=== PATIENT | female | born 1990 | race Caucasian/White ===

== ENCOUNTER 2017-08-09 06:10 | Inpatient (IN) | payer OTHER ==
[2017-08-09 06:39] VITALS: BMI 28.3
[2017-08-09] MEDS ORDERED: DEXTROSE 5%-LACTATED RINGERS 1,000 ML IV SCH (07:15)
[2017-08-09] MEDS ORDERED: TUBERCULIN PPD 5 TU/0.1ML SYRINGE (IN PATIENT USE ONLY) ID ONE (07:15)
[2017-08-09] MEDS ORDERED: IBUPROFEN 600 MG TABLET (FP) PO PRN (08:48)
[2017-08-09] MEDS ORDERED: ONDANSETRON 4 MG/2 ML VIAL IVPUSH PRN (08:48)
[2017-08-09] MEDS ORDERED: IBUPROFEN 800 MG/8 ML IJ IVPB ONE (10:54)
[2017-08-09] MEDS ORDERED: ACETAMINOPHEN 1000 MG/100 ML VIAL (NON FORMULARY) IVPB ONE (10:54)
[2017-08-09] MEDS ORDERED: METHYLERGONOVINE MALEATE 0.2 MG/1 ML AMP IM PRN (15:11)
--- NOTE | 2017-08-09 15:19 | HP ---
Past Medical History - Admission Chief Complaint: Elective History of Present Illness: 27 yo @ 39 weeks gestation with previous , is Pre op for repeat C- Section. History Source: Patient Limitations to Obtaining History: No Limitations - Past Medical History ...: 3 ...Para: 2 ...Term: 2 ...: 0 ...Spon : 0 ...Induced : 0 ...Multiple Gestation: 0 ...EDC by Sono: 08/15/17 - Past Surgical History Past Surgical History: Yes: Hx Myomectomy: No Hx Transabdominal Cerclage: No - Smoking History Smoking history: Never smoked Have you smoked in the past 12 months: No Aproximately how many cigarettes per day: 0 - Alcohol/Substance Use Hx Alcohol Use: No History of Substance Use: reports: None - Social History Usual Living Arrangement: Yes: With Spouse History of Recent Travel: No Home Medications - Allergies Allergies/Adverse Reactions: Allergies Allergy/AdvReac Type Severity Reaction Status Date / Time No Known Allergies Allergy Verified 08/09/17 06:59 - Home Medications Home Medications: Ambulatory Orders Ferrous Sulfate [Feosol] 325 mg PO DAILY 08/09/17 Vit/Iron Fumarate/FA [ Tablet] 1 each PO DAILY 08/09/17 Family Disease History - Family Disease History Family History: Unremarkable Review of Systems - Review of Systems Constitutional: reports: No Symptoms Eyes: reports: No Symptoms HENT: reports: No Symptoms Neck: reports: No Symptoms Cardiovascular: reports: No Symptoms Respiratory: reports: No Symptoms Gastrointestinal: reports: No Symptoms Genitourinary: reports: No Symptoms Breasts: reports: No Symptoms Reported Musculoskeletal: reports: No Symptoms Integumentary: reports: No Symptoms Neurological: reports: No Symptoms Endocrine: reports: No Symptoms Hematology/Lymphatic: reports: No Symptoms Psychiatric: reports: No Symptoms Pain Intensity: 0 Physical Exam - Maternity Vital Signs: Vital Signs Temperature 97.8 F 08/09/17 13:22 Pulse Rate 61 08/09/17 13:22 Respiratory Rate 18 08/09/17 14:00 Blood Pressure 110/67 08/09/17 13:22 O2 Sat by Pulse Oximetry (%) 100 08/09/17 11:20 Constitutional: Yes: Well Nourished Eyes: Yes: Conjunctiva Clear HENT: Yes: Atraumatic Neck: Yes: Supple Cardiovascular: Yes: Regular Rate and Rhythm Lungs: Clear to auscultation - Vaginal Exam/OB Vaginal Bleediing: No Dilatation (cm): 0 Amniotic Membrane Status: Intact - Physical Exam ...Motor Strength: WNL Psychiatric: Yes: Alert, Oriented Problem List - Problems (1) Previous section Code(s): Z98.891 - HISTORY OF UTERINE SCAR FROM PREVIOUS SURGERY Assessment/Plan Previous Pre op for repeat Prep and shave Anesthesia to see patient
--- NOTE | 2017-08-09 15:22 | OP ---
Operative Note - Note: Operative Date: 08/09/17 Pre-Operative Diagnosis: Elective Operation: Repeat Low Transverse Surgeon: Jennifer Enamorado Anesthesia: Spinal
[2017-08-09] MEDS: SIMETHICONE 80 MG TAB.CHEW (FP) PO PRN (17:34)
[2017-08-09] MEDS: ACETAMINOPHEN 325 MG TABLET (FP) PO PRN (17:34)
[2017-08-09] MEDS: IBUPROFEN 600 MG TABLET (FP) PO PRN (17:35)
[2017-08-10] MEDS: ACETAMINOPHEN 325 MG TABLET (FP) PO PRN ×4 (02:49→23:30)
[2017-08-10] MEDS: IBUPROFEN 600 MG TABLET (FP) PO PRN ×2 (02:49→23:30)
[2017-08-10 08:22] LABS: BASOPHIL 0.4 % (0-2.0); EOSINOPHIL 0.3 % (0-4.5); MCH 29.6 pg (25.7-33.7); MEAN CELL VOLUME 87.3 fl (80-96); NEUTROPHILS 79.4 % (42.8-82.8); PLATELET COUNT 189 K/MM3 (134-434); RDW 13.8 % (11.6-15.6); WHITE BLOOD COUNT 8.7 K/mm3 (4.0-10.0)
--- NOTE | 2017-08-10 09:30 | PN ---
Progress Note (short form) - Note Progress Note: Anesthesia POD#1 S/P Repeat under spinal A VSS,no N/V,ambulating,mild itch. Julia Ascencio MD.
--- NOTE | 2017-08-10 09:37 | PN ---
Post Progress Note - Subjective Subjective: 27 yo Para 3 status post repeat , seen and evaluated. She's out of bed to chair. Doing well Post Day: 1 Type of Delivery: Repeat C/S Vital Signs: Vital Signs Temperature 98.2 F 08/10/17 06:00 Pulse Rate 70 08/10/17 06:00 Respiratory Rate 18 08/10/17 08:47 Blood Pressure 108/67 08/10/17 06:00 O2 Sat by Pulse Oximetry (%) 100 08/09/17 11:20 Breast Exam: Yes: Soft Incision: Yes: Dressing dry and intact Abdomen/GI: Yes: Abdomen soft, Tolerating PO Lochia: Yes: Rubra Lochia, amount: Small Extremities: Yes: Calves non-tender Perineum: Yes: Intact Activity: Ambulating - Labs Labs: CBC WBC 8.7 K/mm3 (4.0-10.0) D 08/10/17 07:45 RBC 3.48 M/mm3 (3.60-5.2) L 08/10/17 07:45 Hgb 10.3 GM/dL (10.7-15.3) L 08/10/17 07:45 Hct 30.4 % (32.4-45.2) L 08/10/17 07:45 MCV 87.3 fl (80-96) 08/10/17 07:45 MCH 29.6 pg (25.7-33.7) 08/10/17 07:45 MCHC 34.0 g/dl (32.0-36.0) 08/10/17 07:45 RDW 13.8 % (11.6-15.6) 08/10/17 07:45 Plt Count 189 K/MM3 (134-434) 08/10/17 07:45 MPV 9.0 fl (7.5-11.1) 08/10/17 07:45 Neutrophils % 79.4 % (42.8-82.8) 08/10/17 07:45 Lymphocytes % 14.1 % (8-40) D 08/10/17 07:45 Monocytes % 5.8 % (3.8-10.2) 08/10/17 07:45 Eosinophils % 0.3 % (0-4.5) 08/10/17 07:45 Basophils % 0.4 % (0-2.0) 08/10/17 07:45 Problem List - Problems (1) Previous section Code(s): Z98.891 - HISTORY OF UTERINE SCAR FROM PREVIOUS SURGERY (2) Status post repeat low transverse section Code(s): Z98.891 - HISTORY OF UTERINE SCAR FROM PREVIOUS SURGERY Assessment/Plan Status post repeat Stable Analgesia as needed Continue routine Post op care
[2017-08-10] MEDS ORDERED: FLU VACC QS2017-18 36MOS UP/PF 60 MCG/0.5 ML SYRINGE IM ONE (10:00)
[2017-08-10] MEDS ORDERED: DIPHTH,PERTUSS(ACELL),TET 0.5 ML DISP.SYRIN IM ONE (10:00)
[2017-08-10] MEDS ORDERED: ACETAMINOPHEN 325 MG TABLET (FP) PO PRN (10:10)
[2017-08-10] MEDS: SIMETHICONE 80 MG TAB.CHEW (FP) PO PRN ×3 (11:36→23:29)
[2017-08-10] MEDS: oxyCODONE HCL 5 MG TABLET PO PRN ×3 (11:37→23:29)
[2017-08-10] MEDS ORDERED: BISACODYL 10 MG SUPP.RECT RC PRN (15:11)
--- NOTE | 2017-08-11 08:15 | SURG ---
Surgery Hostess Cashier Note Hostess Cashier: Hyun Reeder PA-C Date of Service: 08/09/17 Diagnosis: elective c section Procedure: c section I was present for the entirety of the operative procedure. For further detail, please refer to operative report. Visit type - Case Type Case Type: Scheduled Admission - Emergency Emergency Visit: No - New patient This patient is new to me today: Yes Date on this admission: 08/11/17
--- NOTE | 2017-08-11 11:56 | PN ---
Post Note - Post Date of Delivery: 08/09/17 Vital Signs: Vital Signs - 24 hr 08/10/17 08/11/17 22:00 08:53 Temperature 98.7 F 98.9 F Pulse Rate 79 67 Respiratory 18 20 Rate Blood Pressure 116/68 117/68 - Subjective Subjective: No Complaints - Objective Breast: Not engorged Abdomen: Soft, Non-tender, Other (incision intact no drainage +steristrips) Uterus: Fundus firm, Non-tender Extremities: Non-tender - Assessment/Plan (1) Previous section Assessment: Other (SP CS) (2) Status post repeat low transverse section Plan: Routine Care
[2017-08-11] MEDS: oxyCODONE HCL 5 MG TABLET PO PRN ×2 (13:42→20:47)
[2017-08-11] MEDS: ACETAMINOPHEN 325 MG TABLET (FP) PO PRN ×2 (13:42→20:47)
[2017-08-11] MEDS: SIMETHICONE 80 MG TAB.CHEW (FP) PO PRN ×2 (13:42→20:48)
[2017-08-12] MEDS: SIMETHICONE 80 MG TAB.CHEW (FP) PO PRN (08:01)
[2017-08-12] MEDS: oxyCODONE HCL 5 MG TABLET PO PRN (08:02)
[2017-08-12 08:45] LABS: BASOPHIL 0.3 % (0-2.0); EOSINOPHIL 1.5 % (0-4.5); MCH 29.7 pg (25.7-33.7); MCHC 34.3 g/dl (32.0-36.0); MEAN CELL VOLUME 86.5 fl (80-96); MEAN PLT VOLUME 9.2 fl (7.5-11.1); NEUTROPHILS 71.4 % (42.8-82.8); PLATELET COUNT 207 K/MM3 (134-434); RDW 13.5 % (11.6-15.6); WHITE BLOOD COUNT 6.5 K/mm3 (4.0-10.0)
[2017-08-12 10:09] VITALS: BP 131/72; PULSE 68; TEMP 97.7
--- NOTE | 2017-08-13 08:56 | DS ---
Physical Exam-PERSONNEL CLERKS SUPERVISOR Vital Signs: Vital Signs Temperature 97.7 F 08/12/17 10:00 Pulse Rate 68 08/12/17 10:00 Respiratory Rate 18 08/12/17 10:00 Blood Pressure 131/72 08/12/17 10:00 O2 Sat by Pulse Oximetry (%) 100 08/09/17 11:20 Constitutional: Yes: Well Nourished Eyes: Yes: Conjunctiva Clear HENT: Yes: Atraumatic Neck: Yes: Supple Cardiovascular: Yes: Regular Rate and Rhythm Respiratory: Yes: Regular, CTA Bilaterally Gastrointestinal: Yes: Normal Bowel Sounds External Genitalia: Yes: Normal Vaginal Exam: Yes: Normal Cervix: Yes: Normal Uterus: Yes: Firm Wound/Incision: Yes: Clean/Dry, Steri Strips (in place) Neurological: Yes: Alert, Oriented ...Motor Strength: WNL Psychiatric: Yes: Alert, Oriented Labs: CBC, BMP 08/12/17 07:00 Delivery - Delivery Type of Anesthesia: Spinal Episiotomy/Laceration: None EBL (cc): 600 Delivery, Single - Stages of Labor Date of Delivery: 08/09/17 Time of Delivery: 09:40 Time Placenta Delivered: 09:41 - Condition of Glass Setter/Quality Reviewer Present: Yes Name: Dany Hoffman Gender: Female Weight: 6 lb 1 oz Position: Left, OT Total Hours ROM (Hrs/Mins): 2mins - 1 Minute Total Score: 9 5 Minutes Total Score: 9 - Feeding Plan Initial Plan: Elected not to breastfeed exclusively throughout hospitalization Discharge Summary Reason For Visit: LABOR ADMIT Procedures: Principal: Repeat Low Transverse Hospital Course: Patient is status post repeat . Routine post op care Condition: Good - Instructions Diet, Activity, Other Instructions: Physical activity Resume your normal everyday activity as tolerated no heavy lifting or exercise until seen by your surgeon. You may walk unlimited chidi of and climb stairs. You may resume driving the car when you feel safe and comfortable behind the wheel. No sexual activity as instructed. Wound care If you have a bandage, leave it on, and keep dry for 48-72 hours. After that time discard the outer bandage. If they are tapes on the skin under the out of bandage leave them in place. They will peel off in the next 7 to 10 days. Do Not Peel them off. You may shower the day after surgery. If there are tapes present on the skin, you may shower over them. Diet There are no dietary restrictions. Eat healthy, high-fiber foods. Drink 6 to 8 glasses of liquid each day. This will assist in keeping your bowels are regular. Pain management You may take Tylenol or acetaminophen or Ibuprofen (for example, Motrin, Advil etc.) from my pain prescription medication is ordered should be taken as prescribed for moderate to severe pain. Call MD for any of the following: Severe pain not relieved by medication Fever of 101 or higher Excessive bleeding or drainage on dressing Inability to urinate Referrals: Jennifer Enamorado MD [Staff Physician] - Disposition: HOME - Home Medications Comprehensive Discharge Medication List: Ambulatory Orders Ferrous Sulfate [Feosol] 325 mg PO DAILY 08/09/17 Vit/Iron Fumarate/FA [ Tablet] 1 each PO DAILY 08/09/17 Ibuprofen [Motrin -] 600 mg PO QID PRN #28 tablet 08/12/17
--- NOTE | 2017-08-16 17:41 | PATH ---
Surgical Pathology Report Patient Name: JOSHUA MCGEE [facility]. Rec. 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 Specimen(s) Received PLACENTA Clinical History , 39.1 weeks Anemia, UTI treated with Cipro 02/2010- cord around neck, repeat 08/2012 Final Diagnosis PLACENTA, : MATURE THIRD TRIMESTER PLACENTA WITH TRIVESSEL UMBILICAL CORD. Electronically Signed Keyona Braga M.D. Gross Description The specimen is received fresh labeled placenta and is a 350 gram, 15.0 x 14.5 x 2.3 cm. placenta with attached membranes and umbilical cord. The attached membranes are espinosa, translucent with focal opacities and insert marginally. The umbilical cord measures 39 cm. in length and averages 0.8 cm. in diameter. The cord inserts eccentrically, 5 cm. to the nearest margin. No true knots or strictures are identified. Cut surface of the umbilical cord reveals 3 vessels. The surface is oropeza-blue with minimal fibrin deposition and appropriate caliber vessels. The maternal surface is red-brown with focal defects. Sectioning reveals red-brown, spongy parenchyma. No lesions are identified. Butter Printer sections are submitted in three cassettes as follows: 1- membrane rolls and umbilical cord; 2-3- full thickness sections of placenta. 08/12/2017 [facility]08/12/2017
== END 2017-08-12 12:30 | disposition home or self-care (01) | DRG 540 ==
LOC: JLDR 06:10 → J3W 11:50
PROVIDERS: ADMIT Obstetrics & Gynecology; ATTEND Obstetrics & Gynecology
PROC: 10D00Z1 Extraction of Products of Conception, Low, Open Approach (ICD-10-PCS; principal; 2017-08-09)
DX: O34.211 Maternal care for low transverse scar from previous cesarean delivery (principal); Z3A.39 39 weeks gestation of pregnancy; Z37.0 Single live birth
CPT/HCPCS: 36415; 85025; 88307-TC; 90686; 90715; G0008

== ENCOUNTER 2019-10-09 05:55 | Inpatient (IN) | payer OTHER ==
[2019-10-09] MEDS ORDERED: CITRIC ACID/SODIUM CITRATE 30 ML UNIT-DOSE CUP PO ONE ×2 (07:40)
[2019-10-09] MEDS ORDERED: ELECTROLYTE-148 SOLN 1,000 ML IV SCH (07:45)
--- NOTE | 2019-10-09 07:46 | HP ---
Past Medical History - Admission Chief Complaint: Elective History of Present Illness: 29 yo @ 39 weeks gestation, admitted for elective . She had 3 previous c-sections. She refuses permanent sterilization. History Source: Patient Limitations to Obtaining History: No Limitations - Past Medical History ...: 4 ...Para: 3 - Past Surgical History Past Surgical History: Yes: Hx Myomectomy: No Hx Transabdominal Cerclage: No - Smoking History Smoking history: Never smoked Have you smoked in the past 12 months: No Aproximately how many cigarettes per day: 0 - Alcohol/Substance Use Hx Alcohol Use: No History of Substance Use: reports: None - Social History Usual Living Arrangement: Yes: With Spouse History of Recent Travel: No Home Medications - Allergies Allergies/Adverse Reactions: Allergies Allergy/AdvReac Type Severity Reaction Status Date / Time No Known Allergies Allergy Verified 10/09/19 07:28 - Home Medications Home Medications: Ambulatory Orders Ferrous Sulfate [Feosol] 325 mg PO DAILY 08/09/17 Vit/Iron Fum/Folic AC [ Tablet] 1 each PO DAILY 08/09/17 Family Medical History Family History: Unremarkable Review of Systems - Review of Systems Constitutional: reports: No Symptoms Eyes: reports: No Symptoms HENT: reports: No Symptoms Neck: reports: No Symptoms Cardiovascular: reports: No Symptoms Respiratory: reports: No Symptoms Gastrointestinal: reports: No Symptoms Genitourinary: reports: No Symptoms Breasts: reports: No Symptoms Reported Musculoskeletal: reports: No Symptoms Integumentary: reports: No Symptoms Neurological: reports: No Symptoms Endocrine: reports: No Symptoms Psychiatric: reports: No Symptoms Pain Intensity: 0 Physical Exam - Maternity Constitutional: Yes: Well Nourished Eyes: Yes: Conjunctiva Clear HENT: Yes: Atraumatic Neck: Yes: Supple Cardiovascular: Yes: Regular Rate and Rhythm Lungs: Clear to auscultation - Abdominal Exam/OB Number of Fetuses: Single Presentation: Vertex Contractions: No Intensity: Unaware - Vaginal Exam/OB Vaginal Bleediing: No Presentation: Vertex/Position - Physical Exam Psychiatric: Yes: Alert, Oriented Assessment/Plan 39 weeks gestation Previous Pre op for elective Consent signed Anesthesia to see patient
[2019-10-09 07:50] VITALS: BMI 26.3
[2019-10-09] MEDS ORDERED: OXYTOCIN 10 UNITS/ML VIAL ONE ×2 (08:05→08:16)
[2019-10-09] MEDS ORDERED: morphine SULFATE/PF 0.5 MG/ML (2cc Syringe - QUVA) ONE (08:05)
[2019-10-09] MEDS ORDERED: BUPIVACAINE HCL/PF 0.5% (5 MG/ML) 30 ML VIAL IJ ONE (08:09)
[2019-10-09] MEDS ORDERED: OXYTOCIN 20 UNITS in 0.9% NS 40 UNIT/2,000 ML INFUS.BAG IV ONE (08:16)
[2019-10-09] MEDS ORDERED: ePHEDrine SULFATE 50 MG/1 ML AMPULE ONE (08:38)
[2019-10-09] MEDS ORDERED: PHENYLEPHRINE HCL 10 MG/1 ML SINGLE DOSE VIAL ONE (08:38)
[2019-10-09] MEDS ORDERED: KETOROLAC TROMETHAMINE 30 MG/1 ML VIAL ONE (08:45)
[2019-10-09] MEDS ORDERED: IBUPROFEN 600 MG TABLET (FP) PO PRN (09:30)
[2019-10-09] MEDS ORDERED: METHYLERGONOVINE MALEATE 0.2 MG/1 ML AMP IM PRN (09:30)
[2019-10-09] MEDS ORDERED: oxyCODONE HCL 5 MG TABLET PO PRN (09:30)
--- NOTE | 2019-10-09 09:32 | OP ---
Operative Note - Note: Operative Date: 10/09/19 Pre-Operative Diagnosis: Previous Operation: Repeat Low Transverse Findings: Baby boy in cephallic position Post-Operative Diagnosis: Same as Pre-op Surgeon: Jennifer Enamorado Senior Staff Psychologist: Murray Domingo Anesthesia: Spinal Specimens Removed: Placenta Estimated Blood Loss (mls): 600 Operative Report Dictated: Yes
[2019-10-09] MEDS ORDERED: ONDANSETRON 4 MG/2 ML VIAL IVPUSH PRN (09:41)
[2019-10-09] MEDS: OXYTOCIN 20 UNITS in 0.9% NS 20 UNIT/1,000 ML INFUS.BAG IV SCH ×2 (11:00→18:00)
[2019-10-09] MEDS: FERROUS SO4 325 MG TABLET (FP) PO SCH ×2 (11:23→21:03)
[2019-10-09] MEDS: PRENATAL VITAMINS W/ FOLIC ACID TABLET (FP) PO SCH (11:25)
[2019-10-09] MEDS: IBUPROFEN 600 MG TABLET (FP) PO PRN (20:40)
[2019-10-09] MEDS: ACETAMINOPHEN 325 MG TABLET (FP) PO PRN (20:41)
[2019-10-09] MEDS: SIMETHICONE 80 MG TAB.CHEW (FP) PO PRN (20:41)
[2019-10-10] MEDS: OXYTOCIN 20 UNITS in 0.9% NS 20 UNIT/1,000 ML INFUS.BAG IV SCH (01:31)
[2019-10-10] MEDS: SIMETHICONE 80 MG TAB.CHEW (FP) PO PRN ×3 (08:07→21:01)
[2019-10-10] MEDS: IBUPROFEN 600 MG TABLET (FP) PO PRN ×3 (08:07→21:02)
[2019-10-10 08:22] LABS: BASO % 0.1 % (0-2.0); EOS % 0.5 % (0-4.5); HEMATOCRIT 29.9 % (32.4-45.2); HEMOGLOBIN 10.2 GM/dL (10.7-15.3); LYMPH % 13.2 % (8-40); MCH 30.2 pg (25.7-33.7); MCHC 34.2 g/dl (32.0-36.0); MEAN CELL VOLUME 88.3 fl (80-96); MEAN PLT VOLUME 10.3 fl (7.5-11.1); MONO % 7.4 % (3.8-10.2); NEUT % 78.8 % (42.8-82.8); PLATELET COUNT 142 K/MM3 (134-434); RBC 3.39 M/mm3 (3.60-5.2); RDW 14.3 % (11.6-15.6); WHITE BLOOD COUNT 7.6 K/mm3 (4.0-10.0)
--- NOTE | 2019-10-10 09:11 | PROC ---
Procedure Note Procedure: Patient seen. Doing well POD#1 after repeat . Took prn analgesics which is helping.
[2019-10-10] MEDS ORDERED: BISACODYL 10 MG SUPP.RECT RC PRN (09:30)
[2019-10-10] MEDS: FERROUS SO4 325 MG TABLET (FP) PO SCH ×2 (10:00→21:02)
[2019-10-10] MEDS: PRENATAL VITAMINS W/ FOLIC ACID TABLET (FP) PO SCH (10:00)
[2019-10-10] MEDS ORDERED: FLU VACC QS2019-20(6MOS UP)/PF 60 MCG/0.5 ML SYRINGE IM ONE (14:00)
[2019-10-10] MEDS ORDERED: FLU VACCINE QUAD 60 MCG/0.5 ML (MDV 19-20) IM ONE (14:00)
[2019-10-10] MEDS: ACETAMINOPHEN 325 MG TABLET (FP) PO PRN (15:32)
[2019-10-10] MEDS: oxyCODONE HCL 5 MG TABLET PO PRN (21:02)
--- NOTE | 2019-10-10 23:12 | PN ---
Progress Note (SOAP) - Subjective Chief Complaint: Pt doing well - Current Medications Current Medications: Active Medications Acetaminophen (Tylenol -) 650 mg PO Q4H PRN PRN Reason: PAIN LEVEL 1-5 Last Admin: 10/10/19 15:32 Dose: 650 mg Bisacodyl (Dulcolax Suppository -) 10 mg RC PRN PRN PRN Reason: CONSTIPATION Diphenhydramine HCl (Benadryl Injection -) 25 mg IVPUSH Q4H PRN PRN Reason: Pruritis Last Admin: 10/09/19 11:26 Dose: 25 mg Ferrous Sulfate (Feosol -) 325 mg PO BID [facility] Last Admin: 10/10/19 21:02 Dose: 325 mg Oxytocin/Sodium Chloride (Normal Saline+20 Units Oxytocin -) 20 unit in 1,000 mls @ 125 mls/hr IV ASDIR [facility] Last Admin: 10/10/19 01:31 Dose: 125 mls/hr Ibuprofen (Motrin -) 600 mg PO Q4H PRN PRN Reason: PAIN LEVEL 1-5 Last Admin: 10/10/19 21:02 Dose: 600 mg Methylergonovine Maleate (Methergine Injection -) 0.2 mg IM Q4H PRN PRN Reason: Excessive Bleeding (L&D) Ondansetron HCl (Zofran Injection) 4 mg IVPUSH Q4H PRN PRN Reason: NAUSEA Oxycodone HCl (Roxicodone -) 5 mg PO Q4H PRN PRN Reason: PAIN 4-6 Last Admin: 10/10/19 21:02 Dose: 5 mg Multivit/Folic Acid/Iron ( Vitamins (Sjr) -) 1 tab PO DAILY [facility] Last Admin: 10/10/19 10:00 Dose: Not Given Simethicone (Mylicon -) 80 mg PO Q4H PRN PRN Reason: GAS Last Admin: 10/10/19 21:01 Dose: 80 mg - Objective Vital Signs: Vital Signs Temperature 98.7 F 10/10/19 22:00 Pulse Rate 102 H 10/10/19 22:00 Respiratory Rate 18 10/10/19 22:00 Blood Pressure 111/53 L 10/10/19 22:00 O2 Sat by Pulse Oximetry (%) 100 10/09/19 11:43 Constitutional: Yes: Well Nourished, No Distress ....Post : Yes: Uterus firm, Uterus non-tender Breast(s): Yes: WNL Musculoskeletal: Yes: WNL Extremities: Yes: WNL Wound/Incision: Yes: Steri Strips Neurological: Yes: WNL, Alert, Oriented Labs Lab Results: CBCD WBC 7.6 K/mm3 (4.0-10.0) 10/10/19 07:24 RBC 3.39 M/mm3 (3.60-5.2) L 10/10/19 07:24 Hgb 10.2 GM/dL (10.7-15.3) L 10/10/19 07:24 Hct 29.9 % (32.4-45.2) L 10/10/19 07:24 MCV 88.3 fl (80-96) 10/10/19 07:24 MCHC 34.2 g/dl (32.0-36.0) 10/10/19 07:24 RDW 14.3 % (11.6-15.6) 10/10/19 07:24 Plt Count 142 K/MM3 (134-434) D 10/10/19 07:24 MPV 10.3 fl (7.5-11.1) 10/10/19 07:24 Problem List - Problems (1) Previous section Code(s): Z98.891 - HISTORY OF UTERINE SCAR FROM PREVIOUS SURGERY (2) Status post repeat low transverse section Code(s): Z98.891 - HISTORY OF UTERINE SCAR FROM PREVIOUS SURGERY Assessment/Plan POD 1 Plan COntinue present management
[2019-10-11] MEDS: FERROUS SO4 325 MG TABLET (FP) PO SCH ×2 (09:43→22:29)
[2019-10-11] MEDS: SIMETHICONE 80 MG TAB.CHEW (FP) PO PRN ×2 (09:43→20:35)
[2019-10-11] MEDS: IBUPROFEN 600 MG TABLET (FP) PO PRN ×2 (09:44→20:35)
[2019-10-11] MEDS: PRENATAL VITAMINS W/ FOLIC ACID TABLET (FP) PO SCH (09:44)
[2019-10-11] MEDS: oxyCODONE HCL 5 MG TABLET PO PRN (09:44)
[2019-10-11] MEDS: OXYTOCIN 20 UNITS in 0.9% NS 20 UNIT/1,000 ML INFUS.BAG IV SCH ×2 (19:29→19:30)
[2019-10-11] MEDS: ACETAMINOPHEN 325 MG TABLET (FP) PO PRN (20:36)
[2019-10-11 22:25] VITALS: TEMP 98.1
--- NOTE | 2019-10-12 05:25 | PN ---
Post Note - Post Date of Delivery: 10/09/19 Post Day: 2 Vital Signs: Vital Signs - 24 hr 10/11/19 10/11/19 10/11/19 09:50 13:52 22:00 Temperature 98.3 F 97.5 F L 98.1 F Pulse Rate 103 H 76 86 Respiratory 22 H 20 18 Rate Blood Pressure 113/67 106/56 L 135/75 - Subjective Subjective: No Complaints, Other (Pt was seen at bedside) - Objective Afebrile: No Breast: Not engorged Abdomen: Soft, Non-tender Uterus: Fundus firm Vagina: Scant lochia Extremities: Non-tender - Assessment/Plan (1) Previous section Assessment: Other (POD 2 SP CS) Plan: Routine Care
[2019-10-12 08:01] LABS: BASO % 0.1 % (0-2.0); EOS % 2.4 % (0-4.5); HEMOGLOBIN 10.3 GM/dL (10.7-15.3); LYMPH % 7.3 % (8-40); MCH 29.6 pg (25.7-33.7); MCHC 33.3 g/dl (32.0-36.0); MEAN CELL VOLUME 88.8 fl (80-96); MEAN PLT VOLUME 9.7 fl (7.5-11.1); MONO % 8.4 % (3.8-10.2); NEUT % 81.8 % (42.8-82.8); PLATELET COUNT 190 K/MM3 (134-434); RBC 3.48 M/mm3 (3.60-5.2); RDW 14.2 % (11.6-15.6); WHITE BLOOD COUNT 10.8 K/mm3 (4.0-10.0)
[2019-10-12] MEDS: SIMETHICONE 80 MG TAB.CHEW (FP) PO PRN (08:43)
[2019-10-12] MEDS: IBUPROFEN 600 MG TABLET (FP) PO PRN (08:43)
[2019-10-12] MEDS: ACETAMINOPHEN 325 MG TABLET (FP) PO PRN (08:44)
[2019-10-12 09:54] VITALS: BP 115/71; PULSE 88
[2019-10-12] MEDS: FERROUS SO4 325 MG TABLET (FP) PO SCH (09:57)
[2019-10-12] MEDS: PRENATAL VITAMINS W/ FOLIC ACID TABLET (FP) PO SCH (09:57)
--- NOTE | 2019-10-12 22:32 | DS ---
Physical Exam-ASPHALT PAVING SUPERVISOR Vital Signs: Vital Signs Temperature 98.1 F 10/12/19 09:51 Pulse Rate 88 10/12/19 09:51 Respiratory Rate 18 10/12/19 09:51 Blood Pressure 115/71 10/12/19 09:51 O2 Sat by Pulse Oximetry (%) 100 10/09/19 11:43 Constitutional: Yes: No Distress Eyes: Yes: Conjunctiva Clear Neck: Yes: Supple Cardiovascular: Yes: Regular Rate and Rhythm Respiratory: Yes: Regular Gastrointestinal: Yes: Normal Bowel Sounds Pelvis: Yes: WNL External Genitalia: Yes: Normal Vaginal Exam: Yes: Normal ....Post : Yes: Uterus firm Breast(s): Yes: WNL Musculoskeletal: Yes: WNL Extremities: Yes: WNL Wound/Incision: Yes: Well Approximated, Steri Strips (in place) Neurological: Yes: Alert, Oriented ...Motor Strength: WNL Psychiatric: Yes: Alert, Oriented Labs: CBC, BMP 10/12/19 07:17 Delivery - Delivery Type of Anesthesia: Spinal Episiotomy/Laceration: None EBL (cc): 600 Delivery, Single - Stages of Labor Date of Delivery: 10/09/19 Time of Delivery: 08:42 Time Placenta Delivered: 08:43 - Condition of El Teacher/Imaging Aide Present: Yes Name: Nereyda Peguero Infant Gender: Male Weight: 7 lb 2 oz Position: Right, OT Total Hours ROM (Hrs/Mins): 2mins - 1 Minute Total Score: 9 5 Minutes Total Score: 9 - Feeding Plan Initial Plan: Elected not to breastfeed exclusively throughout hospitalization Discharge Summary Problems reviewed: Yes Reason For Visit: C/SECTION Procedures: Principal: Repeat Low Transverse Hospital Course: Routine post op care Health Concerns: None Plan of Treatment: Analgesia as needed Ambulation F/U with MD in 2 weeks Goals: Resume normal activities in 6 weeks Condition: Stable - Instructions Diet, Activity, Other Instructions: Please call Dr. Enamorado office for follow up visit within 4-6 weeks. Disposition: HOME - Home Medications Comprehensive Discharge Medication List: Ambulatory Orders Ferrous Sulfate [Feosol] 325 mg PO DAILY 08/09/17 Vit/Iron Fum/Folic AC [ Tablet] 1 each PO DAILY 08/09/17
--- NOTE | 2019-10-17 13:44 | PATH ---
Surgical Pathology Report Patient Name: JOSHUA MCGEE Med. Rec. 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 Specimen(s) Received PLACENTA Clinical History at 39.1 weeks Final Diagnosis PLACENTA: THIRD TRIMESTER PLACENTA. TRIVASCULAR CORD. MEMBRANES WITH NO DIAGNOSTIC ABNORMALITIES. Electronically Signed Lorenza Vaughan M.D. Gross Description The specimen is received fresh labeled placenta and is a 364 gram, 17.0 x 12.5 x 2.8 cm. placenta with attached membranes and umbilical cord. The attached membranes are espinosa, translucent with focal opacities and insert marginally. The umbilical cord measures 40 cm. in length and averages 0.9 cm. in diameter. The cord inserts eccentrically, 4.5 cm. to the nearest margin. No true knots or strictures are identified. Cut surface of the umbilical cord reveals 3 vessels. The surface is oropeza-blue with minimal fibrin deposition and appropriate caliber vessels. The maternal surface is red-brown with focal defects. Sectioning reveals red-brown, spongy parenchyma. No lesions are identified. Sales Leader sections are submitted in three cassettes as follows: 1- membrane rolls and umbilical cord; 2-3- full thickness sections of placenta. /10/16/2019 [facility]/10/16/2019
--- NOTE | 2019-10-23 11:29 | OP ---
DATE OF OPERATION: 10/09/2019 PREOPERATIVE DIAGNOSIS: Elective section. POSTOPERATIVE DIAGNOSIS: Elective section. PROCEDURE: Repeat low transverse section. SURGEON: Jennifer Enamorado MD FLOOR REFINISHER: IRINA Ibarra ANESTHESIA: Spinal. COMPLICATIONS: None. ESTIMATED BLOOD LOSS: 600 mL. DESCRIPTION OF PROCEDURE: Patient was taken to the operating room where spinal anesthesia was administered. Patient was then prepped and draped in proper sterile fashion. The Pfannenstiel skin incision was made and carried down to the underlying layer of fascia. The fascia was incised in the midline and extended laterally. The superior aspect of the fascial incision was then grasped with a Cecile clamp, elevated, and the rectus muscles dissected off bluntly. Attention was then turned to the inferior aspect of the fascial incision, which in a similar fashion was then grasped with a Cecile clamp, elevated, and the rectus muscle dissected off bluntly. The rectus muscle was then in the midline. The peritoneum identified and entered sharply with the Metzenbaum scissors. Then the vesicouterine peritoneum was then grasped with a pickup and entered sharply with the Metzenbaum scissors. This incision was extended laterally and a bladder flap created digitally. The bladder blade was then inserted. Then the lower uterine segment was incised using a 10 blade. This incision was extended laterally and the head delivered atraumatically. Nose and mouth were suctioned and the cord clamped and cut. The infant was handed to the waiting site foreman. The placenta was removed manually. The uterus was exteriorized and cleared of all clots and debris. The uterine incision was repaired using 0 Biosyn in a running, locked fashion. A 2nd layer of the same suture was used as a means to provide excellent hemostasis. Then the pelvis was completely irrigated. The uterus was returned to the abdomen. The fascia was reapproximated using 0 Vicryl in running fashion. The peritoneum was closed using 2-0 Biosyn, and the skin was closed in a subcuticular fashion using 3-0 Vicryl. The patient tolerated procedure well. The patient was then taken to PACU in stable condition. PATHOLOGY: Placenta. Wilfred CRISOSTOMO/[id number]
== END 2019-10-12 15:55 | disposition home or self-care (01) | DRG 540 ==
LOC: JLDR 05:55 → J3W 11:34
PROVIDERS: ADMIT Obstetrics & Gynecology; ATTEND Obstetrics & Gynecology
PROC: 10D00Z1 Extraction of Products of Conception, Low, Open Approach (ICD-10-PCS; principal; 2019-10-09)
DX: O34.211 Maternal care for low transverse scar from previous cesarean delivery (principal); Z3A.39 39 weeks gestation of pregnancy; Z37.0 Single live birth
CPT/HCPCS: 36415; 85025; 88307-TC; 90686; G0008